=== PATIENT | female | born 1975 | race Caucasian/White ===

== ENCOUNTER → 2016-10-30 | Outpatient (CLI) | payer OTHER ==
[~2016-10-30] MED LIST: ALLEGRA 60MG TA60 MG PO; COZAAR 50MG50 MG/TAB PO; DOXYCYCLINE 10100 MG PO; FLEXERIL 1010 MG/TAB PO; HUMIRA40 MG/0.1 SC; KEPPRA750 MG PO; MEDROL 4MG DOSPA4 MG PO; METHOTREXA2.5 MG/TAB PO; MICROGESTIN 1.51 TAB PO; MOTRIN 800800 MG/TAB PO; NORCO 325 MG-51 TAB PO; PREDNISONE20 MG PO; PROZAC 10MG10 MG PO; PROZAC 20MG4 MG/1 ML; SINGULAIR 110 MG/TAB PO; VIMPAT100 MG PO; VIMPAT200 MG PO; ZESTRIL 10MG10 MG; ZITHROMAX Z PA250 MG PO; ZOFRAN ODT4 MG PO
== END ==
LOC: COL.RAD 10:07
DX: J44.9 Chronic obstructive pulmonary disease, unspecified (principal)

== ENCOUNTER 2016-12-01 21:19 | Emergency (ER) | payer OTHER ==
[~2016-12-01] VITALS: Ht 160 cm; Wt 90.9 kg
[~2016-12-01 21:19] MED LIST changes: -ALLEGRA 60MG TA60 MG PO; -COZAAR 50MG50 MG/TAB PO; -DOXYCYCLINE 10100 MG PO; -PREDNISONE20 MG PO; -SINGULAIR 110 MG/TAB PO
[2016-12-01 21:21] VITALS: BP 159/85
[2016-12-01] MEDS ORDERED: COZAAR 50MG50 MG/TAB PO (21:24)
[2016-12-01] MEDS ORDERED: ALLEGRA 60MG TA60 MG PO (22:06)
[2016-12-01] MEDS ORDERED: SINGULAIR 110 MG/TAB PO (22:06)
[2016-12-01 22:49] VITALS: TEMP 101.2
[2016-12-01 22:54] LABS: INFLUENZA B NEGATIVE
[2016-12-01] MEDS ORDERED: DOXYCYCLINE 10100 MG PO (23:26)
[2016-12-01] MEDS ORDERED: PREDNISONE20 MG PO (23:26)
[2016-12-02 00:19] VITALS: PULSE 109
== END 2016-12-02 00:18 | disposition home or self-care (01) ==
LOC: COL.ER 21:19
PROVIDERS: Emergency Medicine
DX: J20.9 Acute bronchitis, unspecified (principal); Z87.891 Personal history of nicotine dependence; M06.9 Rheumatoid arthritis, unspecified; G40.909 Epilepsy, unspecified, not intractable, without status epilepticus
CPT/HCPCS: J2930; J7030

== ENCOUNTER → 2016-12-20 | Outpatient (CLI) | payer BC ==
[~2016-12-20] MED LIST changes: +ALLEGRA 60MG TA60 MG PO; +COZAAR 50MG50 MG/TAB PO; +DOXYCYCLINE 10100 MG PO; +PREDNISONE20 MG PO; +SINGULAIR 110 MG/TAB PO
== END ==
LOC: COL.PUL 07:50
DX: J45.909 Unspecified asthma, uncomplicated (principal); M54.9 Dorsalgia, unspecified

== ENCOUNTER 2017-01-29 18:59 | Emergency (ER) | payer BC ==
[~2017-01-29] VITALS: Ht 160 cm; Wt 90.9 kg
[2017-01-29 19:10] VITALS: BP 133/73; TEMP 98.3
[2017-01-29] MEDS ORDERED: FLEXERIL 1010 MG/TAB PO (20:12)
[2017-01-29 20:30] VITALS: PULSE 82
== END 2017-01-29 20:30 | disposition home or self-care (01) ==
LOC: COL.ER 18:59
DX: M54.5 Low back pain (principal); M62.830 Muscle spasm of back; M06.851 Other specified rheumatoid arthritis, right hip

== ENCOUNTER → 2017-04-25 | Outpatient (CLI) | payer BC, OTHER | LOC: COL.PUL 08:44 | DX: R06.02 Shortness of breath (principal); Z87.891 Personal history of nicotine dependence | CPT/HCPCS: J7674 ==

== ENCOUNTER → 2017-07-01 | Outpatient (CLI) | payer BC | LOC: COL.RAD 14:32 | DX: M17.12 Unilateral primary osteoarthritis, left knee (principal); M71.22 Synovial cyst of popliteal space [Baker], left knee ==

== ENCOUNTER 2017-08-25 21:44 | Emergency (ER) | payer BC ==
[~2017-08-25] VITALS: Ht 160 cm; Wt 93.6 kg
[2017-08-25 21:47] VITALS: BP 132/95; TEMP 99.3
[2017-08-25 22:27] LABS: INFLUENZA A NEGATIVE; INFLUENZA B NEGATIVE
[2017-08-25] MEDS ORDERED: ORENCIA250 MG IV (23:09)
[2017-08-25] MEDS ORDERED: DULERA1 ARO IH (23:10)
[2017-08-25] MEDS ORDERED: ORENCIA CL125 MG/1 M SQ (23:11)
[2017-08-25 23:34] VITALS: PULSE 96
== END 2017-08-25 23:34 | disposition home or self-care (01) ==
LOC: COL.ER 21:44
PROVIDERS: Nurse Practitioner
DX: J06.9 Acute upper respiratory infection, unspecified (principal); I10 Essential (primary) hypertension; F41.9 Anxiety disorder, unspecified; G40.909 Epilepsy, unspecified, not intractable, without status epilepticus; Z90.49 Acquired absence of other specified parts of digestive tract; Z87.891 Personal history of nicotine dependence

== ENCOUNTER → 2017-11-07 | Outpatient (CLI) | payer BC ==
[~2017-11-07] MED LIST changes: +DULERA1 ARO IH; +ORENCIA CL125 MG/1 M SQ; +ORENCIA250 MG IV
== END ==
LOC: MC.RAD 13:34
DX: Z12.31 Encounter for screening mammogram for malignant neoplasm of breast (principal)

== ENCOUNTER 2018-12-05 09:52 | Day surgery (SDC) | payer BC ==
[~2018-12-05] VITALS: Ht 160 cm; Wt 91.3 kg
[2018-12-05] VITALS (8 sets, daily range): BP systolic 100–127; BP diastolic 58–83; PULSE 69–90; TEMP 97.9–98.3
[2018-12-05] MEDS ORDERED: XELJANZ5 MG PO (10:20)
[2018-12-05] MEDS ORDERED: VIMPAT200 MG PO (10:41)
[2018-12-05] MEDS ORDERED: VIMPAT100 MG PO (10:41)
[2018-12-05] MEDS ORDERED: KEPPRA750 MG PO (10:42)
[2018-12-05] MEDS ORDERED: COZAAR 50MG50 MG/TAB PO (10:43)
[2018-12-05] MEDS ORDERED: JUNEL FE 1/20 21 TAB PO (10:43)
[2018-12-05] MEDS ORDERED: SINGULAIR 110 MG/TAB PO (10:44)
[2018-12-05] MEDS ORDERED: BREO IH (10:45)
[2018-12-05] MEDS ORDERED: PROZAC 10MG10 MG PO (10:45)
[2018-12-05] MEDS ORDERED: FOLIC ACID 11 MG/TA1 PO (10:46)
[2018-12-05] MEDS ORDERED: MULTIPLE VITAMI1 CAP PO (10:46)
[2018-12-05] MEDS ORDERED: VITAMIN D3400 I1 PO (10:47)
[2018-12-05] MEDS ORDERED: OMEGA-3 1000 MG1 CAP PO (10:47)
--- NOTE | 2018-12-05 11:40 | NUR ---
Patient returned to [facility]. Alert and oriented. Vital signs obtained. SpO2 will dip down. When reminded to take deep breaths does return to normal. Patient states she feels sleepy. Friend Mahsa at bedside. Patient given small sip of water. Call jackson within reach, will continue to monitor.
--- NOTE | 2018-12-05 11:55 | NUR ---
Patient SpO2 back up to normal. Alert and oriented. Tolerating water without any difficulty. Will continue to monitor.
--- NOTE | 2018-12-05 12:10 | NUR ---
Resting and talking with friend. Denies pain or nausea.
--- NOTE | 2018-12-05 12:25 | NUR ---
Eating toast. Room air sats 97% and is resting and talking with friend.
--- NOTE | 2018-12-05 12:40 | NUR ---
Resting with eyes closed and allowed to sleep. States that she feels very tired.
--- NOTE | 2018-12-05 12:55 | NUR ---
Resting in recliner with eyes closed.
--- NOTE | 2018-12-05 13:25 | NUR ---
More awake and eating ice cream.
--- NOTE | 2018-12-05 13:45 | NUR ---
Patient awake and dressed self. Given dismissal instructions and voices understanding of these. Dismissed to home per private vehicle driven by friend and taken to the front door per wheelchair by RN and dismissed to home.
== END 2018-12-05 13:45 | disposition home or self-care (01) ==
LOC: SDCO 09:52
DX: K92.1 Melena (principal); K64.1 Second degree hemorrhoids; F32.9 Major depressive disorder, single episode, unspecified; K29.30 Chronic superficial gastritis without bleeding; I10 Essential (primary) hypertension; K58.9 Irritable bowel syndrome, unspecified; E66.9 Obesity, unspecified; Z90.49 Acquired absence of other specified parts of digestive tract; Z68.36 Body mass index [BMI] 36.0-36.9, adult; Z80.0 Family history of malignant neoplasm of digestive organs; Z83.71 Family history of colonic polyps; Z88.0 Allergy status to penicillin; Z88.2 Allergy status to sulfonamides
CPT/HCPCS: J2250; J3010; J7030

== ENCOUNTER 2018-12-25 09:11 | Emergency (ER) | payer BC ==
[~2018-12-25] VITALS: Ht 160 cm; Wt 93.0 kg
[~2018-12-25 09:11] MED LIST changes: +BREO IH; +FOLIC ACID 11 MG/TA1 PO; +JUNEL FE 1/20 21 TAB PO; +MULTIPLE VITAMI1 CAP PO; +OMEGA-3 1000 MG1 CAP PO; +VITAMIN D3400 I1 PO; +XELJANZ5 MG PO
[2018-12-25 09:17] VITALS: TEMP 98.3
[2018-12-25 10:12] LABS: COLLECTION METHOD CLEAN CATCH
[2018-12-25 10:18] LABS: BASO % 0.6 % (0.0-2.0); EOS # 0.2 (0.0-0.7); EOS % 2.5 % (0-4.0); GRAN % 69.7 % (42.2-75.2); HEMATOCRIT 39.5 % (37.0-47.0); HEMOGLOBIN 13.7 g/dl (12.5-16.0); LYMPH # 1.5 (1.2-3.4); LYMPH % 21.4 % (20.0-51.0); MEAN CELL VOLUME 90 fl (80.0-100.0); MEAN CORPUSCULAR HEMOGLOBIN 31 pg (27.0-31.0); MEAN CORPUSCULAR HGB CONC 35 g/dl (33.0-37.0); MEAN PLATELET VOLUME 10.2 fl (7.4-10.4); MONO # 0.4 (0.1-0.6); MONO % 5.5 % (1.7-9.3); PLATELET COUNT 249 K/mm3 (130-400); RED BLOOD COUNT 4.38 M/mm3 (4.10-5.30)
[2018-12-25 10:25] LABS: MUCOUS Present /lpf; PH 5 (5-8); URINE APPEARANCE Clear; URINE BACTERIA None Seen /hpf; URINE BILIRUBIN Negative (NEGATIVE); URINE BLOOD Negative (NEGATIVE); URINE COLOR Yellow; URINE GLUCOSE Negative (NEGATIVE); URINE KETONE Negative (NEGATIVE); URINE LEUKOCYTE ESTERASE Negative (NEGATIVE); URINE NITRATE Negative (NEGATIVE); URINE PROTEIN(semi-quant) Negative (NEGATIVE); URINE RBC 0-2 /hpf; URINE UROBILINOGEN Negative (NEGATIVE)
[2018-12-25 10:31] LABS: ALBUMIN 4.4 gm/dL (3.5-5.0); BILIRUBIN,TOTAL 0.5 mg/dL (0.0-1.0); C-REACTIVE PROTEIN 1.4 mg/dL (0.0-0.9); CALCIUM 9.9 mg/dL (8.4-10.2); CREATININE, serum 0.76 (0.52-1.25); POTASSIUM 4.5 mmol/L (3.4-5.0); TOTAL PROTEIN 8.3 gm/dL (6.4-8.2)
[2018-12-25 11:45] VITALS: BP 133/85; PULSE 84
== END 2018-12-25 11:46 | disposition home or self-care (01) ==
LOC: COL.ER 09:11
PROVIDERS: Nurse Practitioner
DX: R10.32 Left lower quadrant pain (principal); I10 Essential (primary) hypertension; F41.9 Anxiety disorder, unspecified; J45.909 Unspecified asthma, uncomplicated; Z90.49 Acquired absence of other specified parts of digestive tract; Z87.891 Personal history of nicotine dependence
CPT/HCPCS: J1170; J7030; Q9967

== ENCOUNTER → 2019-03-09 | Outpatient (CLI) | payer BC ==
[2019-03-09 10:09] LABS: ALBUMIN 4.3 gm/dL (3.5-5.0); CALCIUM 9.7 mg/dL (8.4-10.2); CREATININE, serum 0.75 (0.52-1.25); MAGNESIUM 1.8 mg/dL (1.6-2.3); PHOSPHOROUS 3.3 mg/dL (2.5-4.5); POTASSIUM 4.2 mmol/L (3.4-5.0)
== END ==
LOC: COL.LAB 08:26
PROVIDERS: Family Medicine
DX: Z84.1 Family history of disorders of kidney and ureter (principal)

== ENCOUNTER 2019-03-20 21:01 | Emergency (ER) | payer BC, OTHER ==
[~2019-03-20] VITALS: Ht 160 cm; Wt 89.5 kg
[2019-03-20 21:08] VITALS: TEMP 98.2
[2019-03-20 22:00] LABS: BASO % 0.5 % (0.0-2.0); EOS # 0.1 (0.0-0.7); GRAN # 6.9 (1.4-6.5); GRAN % 81.6 % (42.2-75.2); HEMOGLOBIN 11.7 g/dl (12.5-16.0); LYMPH % 11.9 % (20.0-51.0); MEAN CELL VOLUME 87 fl (80.0-100.0); MEAN CORPUSCULAR HEMOGLOBIN 31 pg (27.0-31.0); MEAN CORPUSCULAR HGB CONC 35 g/dl (33.0-37.0); MEAN PLATELET VOLUME 9.9 fl (7.4-10.4); MONO # 0.4 (0.1-0.6); MONO % 4.6 % (1.7-9.3); PLATELET COUNT 215 K/mm3 (130-400); RED BLOOD COUNT 3.83 M/mm3 (4.10-5.30); REDCELL DISTRIBUTION WIDTH-CV 11.9 % (11.5-14.5)
[2019-03-20 22:07] LABS: HEMATOCRIT 33.4 % (37.0-47.0)
[2019-03-20 22:17] LABS: ALBUMIN 3.6 gm/dL (3.5-5.0); BILIRUBIN,TOTAL 0.2 mg/dL (0.0-1.0); C-REACTIVE PROTEIN 1.6 mg/dL (0.0-0.9); CALCIUM 8.5 mg/dL (8.4-10.2); CREATININE, serum 0.69 (0.52-1.25); POTASSIUM 3.9 mmol/L (3.4-5.0); TOTAL PROTEIN 6.5 gm/dL (6.4-8.2)
[2019-03-20 22:50] VITALS: BP 128/84; PULSE 64
== END 2019-03-20 22:50 | disposition home or self-care (01) ==
LOC: COL.ER 21:01
PROVIDERS: Family Medicine
DX: G40.909 Epilepsy, unspecified, not intractable, without status epilepticus (principal); Z79.51 Long term (current) use of inhaled steroids
CPT/HCPCS: J1953; J7030

== ENCOUNTER → 2019-04-16 | Outpatient (CLI) | payer BC | LOC: MC.RAD 08:00 | DX: Z12.31 Encounter for screening mammogram for malignant neoplasm of breast (principal) ==

== ENCOUNTER → 2019-07-15 | Outpatient (CLI) | payer BC | LOC: MC.RAD 13:55 | DX: R92.2 Inconclusive mammogram (principal) ==

== ENCOUNTER → 2019-09-16 | Outpatient (CLI) | payer BC | LOC: COL.RAD 14:33 | DX: M53.3 Sacrococcygeal disorders, not elsewhere classified (principal); G43.909 Migraine, unspecified, not intractable, without status migrainosus ==

== ENCOUNTER → 2019-11-28 | Outpatient (CLI) | payer BC | LOC: COL.LAB 12:05 | DX: Z11.59 Encounter for screening for other viral diseases (principal) ==

== ENCOUNTER 2019-12-06 13:28 | Emergency (ER) | payer BC ==
[~2019-12-06] VITALS: Ht 160 cm; Wt 93.2 kg
[2019-12-06 13:31] VITALS: BP 178/87; TEMP 97.8
[2019-12-06] MEDS ORDERED: KEPPRA750 MG PO (13:57)
[2019-12-06 14:10] VITALS: PULSE 90
== END 2019-12-06 14:10 | disposition home or self-care (01) ==
LOC: COL.ER 13:28
DX: Z76.0 Encounter for issue of repeat prescription (principal); F41.9 Anxiety disorder, unspecified; M06.9 Rheumatoid arthritis, unspecified; G40.909 Epilepsy, unspecified, not intractable, without status epilepticus; Z87.891 Personal history of nicotine dependence; Z79.51 Long term (current) use of inhaled steroids

== ENCOUNTER 2020-01-31 19:49 | Emergency (ER) | payer BC ==
[~2020-01-31] VITALS: Ht 160 cm; Wt 92.7 kg
[2020-01-31 19:55] VITALS: TEMP 97.5
[2020-01-31] MEDS ORDERED: PREDNISONE20 MG PO (20:44)
[2020-01-31 21:00] VITALS: BP 166/89; PULSE 87
== END 2020-01-31 21:00 | disposition home or self-care (01) ==
LOC: COL.ER 19:49
DX: M79.642 Pain in left hand (principal); M06.9 Rheumatoid arthritis, unspecified; J45.909 Unspecified asthma, uncomplicated; G40.909 Epilepsy, unspecified, not intractable, without status epilepticus; Z90.49 Acquired absence of other specified parts of digestive tract; Z79.51 Long term (current) use of inhaled steroids; Z87.891 Personal history of nicotine dependence; W10.9XXA Fall (on) (from) unspecified stairs and steps, initial encounter
CPT/HCPCS: J7512

== ENCOUNTER → 2020-03-07 | Outpatient (CLI) | payer BC ==
[2020-03-07 07:30] LABS: HEMATOCRIT 38.1 % (37.0-47.0); HEMOGLOBIN 13.4 g/dl (12.5-16.0); MEAN CELL VOLUME 88 fl (80.0-100.0); MEAN CORPUSCULAR HEMOGLOBIN 31 pg (27.0-31.0); MEAN CORPUSCULAR HGB CONC 35 g/dl (33.0-37.0); MEAN PLATELET VOLUME 9.7 fl (7.4-10.4); PLATELET COUNT 253 K/mm3 (130-400); RED BLOOD COUNT 4.31 M/mm3 (4.10-5.30); REDCELL DISTRIBUTION WIDTH-CV 11.8 % (11.5-14.5)
[2020-03-07 07:40] LABS: ALBUMIN 4.2 gm/dL (3.5-5.0); BILIRUBIN,TOTAL 0.4 mg/dL (0.0-1.0); CALCIUM 8.8 mg/dL (8.4-10.2); CHOLESTEROL RISK RATIO 4.6; CREATININE, serum 0.77 (0.52-1.25); TOTAL PROTEIN 7.4 gm/dL (6.4-8.2)
[2020-03-07 08:09] LABS: THYROID STIMULATING HORMONE 4.95 uIU/mL (0.465-4.680)
== END ==
LOC: COL.LAB 07:05
PROVIDERS: Family Medicine
DX: Z13.0 Encounter for screening for diseases of the blood and blood-forming organs and certain disorders involving the immune mechanism (principal); Z13.1 Encounter for screening for diabetes mellitus; Z13.220 Encounter for screening for lipoid disorders

== ENCOUNTER 2020-06-13 15:02 | Outpatient (RCR) | payer OTHER ==
[2020-06-20] MEDS ORDERED: ZITHROMAX 250M250 MG PO (10:36)
[2020-06-20] MEDS ORDERED: TRAVEL SICKNESS25 MG PO (12:37)
== END 2020-08-08 | disposition home or self-care (01) ==
LOC: WSOH
DX: M75.42 Impingement syndrome of left shoulder (principal); G43.909 Migraine, unspecified, not intractable, without status migrainosus; J45.909 Unspecified asthma, uncomplicated; F41.9 Anxiety disorder, unspecified; E28.2 Polycystic ovarian syndrome; G40.909 Epilepsy, unspecified, not intractable, without status epilepticus; M06.9 Rheumatoid arthritis, unspecified; Z87.891 Personal history of nicotine dependence; Y99.0 Civilian activity done for income or pay

== ENCOUNTER 2020-06-20 10:20 | Emergency (ER) | payer BC ==
[~2020-06-20] VITALS: Ht 160 cm; Wt 93.2 kg
[2020-06-20 10:33] VITALS: TEMP 98.1
[2020-06-20] MEDS ORDERED: ZITHROMAX 250M250 MG PO (10:36)
[2020-06-20 11:53] LABS: BASO # 0.1 (0.0-0.2); BASO % 0.7 % (0.0-2.0); EOS # 0.2 (0.0-0.7); EOS % 2.1 % (0-4.0); GRAN % 73.7 % (42.2-75.2); HEMATOCRIT 38.5 % (37.0-47.0); HEMOGLOBIN 13.2 g/dl (12.5-16.0); LYMPH # 1.5 (1.2-3.4); LYMPH % 18.1 % (20.0-51.0); MEAN CELL VOLUME 90 fl (80.0-100.0); MEAN CORPUSCULAR HEMOGLOBIN 31 pg (27.0-31.0); MEAN CORPUSCULAR HGB CONC 34 g/dl (33.0-37.0); MONO # 0.4 (0.1-0.6); MONO % 4.9 % (1.7-9.3); PLATELET COUNT 300 K/mm3 (130-400); RED BLOOD COUNT 4.29 M/mm3 (4.10-5.30); REDCELL DISTRIBUTION WIDTH-CV 12.3 % (11.5-14.5)
[2020-06-20 11:58] LABS: ALBUMIN 4.7 gm/dL (3.5-5.0); BILIRUBIN,TOTAL 0.4 mg/dL (0.0-1.0); C-REACTIVE PROTEIN 1.5 mg/dL (0.0-0.9); CALCIUM 9.8 mg/dL (8.4-10.2); CREATININE, serum 0.93 (0.52-1.25); POTASSIUM 4.3 mmol/L (3.4-5.0)
[2020-06-20] MEDS ORDERED: TRAVEL SICKNESS25 MG PO (12:37)
[2020-06-20 12:44] VITALS: BP 146/86; PULSE 89
== END 2020-06-20 12:43 | disposition home or self-care (01) ==
LOC: COL.ER 10:20
PROVIDERS: Physician Assistant
DX: R42 Dizziness and giddiness (principal); H53.9 Unspecified visual disturbance; R20.2 Paresthesia of skin; J45.909 Unspecified asthma, uncomplicated; G40.909 Epilepsy, unspecified, not intractable, without status epilepticus; M06.9 Rheumatoid arthritis, unspecified; Z90.49 Acquired absence of other specified parts of digestive tract; Z32.02 Encounter for pregnancy test, result negative; Z87.891 Personal history of nicotine dependence; Z88.1 Allergy status to other antibiotic agents; Z88.5 Allergy status to narcotic agent; Z79.899 Other long term (current) drug therapy
CPT/HCPCS: J3360; J7030

== ENCOUNTER → 2020-10-10 | Outpatient (CLI) | payer BC ==
[~2020-10-10] MED LIST changes: +ACTEMRA AC162 MG/0.9 SQ; +HYZAAR 25 MG-101 TAB PO; -MULTIPLE VITAMI1 CAP PO; +MULTIPLE VITAMI1 TA5 PO; +PROZAC 20MG20 MG PO; +TOPROL XL 25MG25 MG PO; +TRAVEL SICKNESS25 MG PO; +ZITHROMAX 250M250 MG PO
[2020-10-10 14:33] LABS: HEMOGLOBIN 12.8 g/dl (12.5-16.0); MEAN CELL VOLUME 87 fl (80.0-100.0); MEAN CORPUSCULAR HEMOGLOBIN 30 pg (27.0-31.0); MEAN CORPUSCULAR HGB CONC 35 g/dl (33.0-37.0); MEAN PLATELET VOLUME 9.7 fl (7.4-10.4); PLATELET COUNT 269 K/mm3 (130-400); RED BLOOD COUNT 4.24 M/mm3 (4.10-5.30); REDCELL DISTRIBUTION WIDTH-CV 12.6 % (11.5-14.5)
[2020-10-10 14:42] LABS: ALANINE AMINOTRANSFERASE 17 U/L (4-34); AST,SGOT 26 U/L (15-37)
== END ==
LOC: COL.LAB
PROVIDERS: Internal Medicine Rheumatology
DX: Z79.899 Other long term (current) drug therapy (principal)

== ENCOUNTER → 2020-10-19 | Outpatient (CLI) | payer BC ==
[2020-10-19 15:48] LABS: BASO % 0.4 % (0.0-2.0); EOS # 0.2 (0.0-0.7); EOS % 3.1 % (0-4.0); GRAN # 5.1 (1.4-6.5); GRAN % 75.2 % (42.2-75.2); HEMATOCRIT 39.9 % (37.0-47.0); HEMOGLOBIN 13.6 g/dl (12.5-16.0); LYMPH # 0.9 (1.2-3.4); LYMPH % 13.7 % (20.0-51.0); MEAN CELL VOLUME 87 fl (80.0-100.0); MEAN CORPUSCULAR HEMOGLOBIN 30 pg (27.0-31.0); MEAN CORPUSCULAR HGB CONC 34 g/dl (33.0-37.0); MEAN PLATELET VOLUME 9.6 fl (7.4-10.4); MONO # 0.5 (0.1-0.6); MONO % 7.2 % (1.7-9.3); PLATELET COUNT 249 K/mm3 (130-400); REDCELL DISTRIBUTION WIDTH-CV 12.4 % (11.5-14.5)
[2020-10-19 16:00] LABS: CALCIUM 9.1 mg/dL (8.4-10.2); CREATININE, serum 0.72 (0.52-1.25); POTASSIUM 4.2 mmol/L (3.4-5.0)
== END ==
LOC: COL.LAB 14:56
PROVIDERS: Physician Assistant Medical
DX: J02.9 Acute pharyngitis, unspecified (principal); I10 Essential (primary) hypertension

== ENCOUNTER → 2020-12-08 | Outpatient (CLI) | payer BC ==
[2020-12-08 23:05] LABS: ESTRADIOL <10 pg/mL (()); FOLLICLE STIMULATING HORMONE 2.7 mIU/mL (()); T3 FREE (TRI-IODOTHYRONINE) 3.3 pg/mL (1.7-3.7)
== END ==
LOC: COL.LAB 16:27
PROVIDERS: Family Medicine
DX: N95.1 Menopausal and female climacteric states (principal)

== ENCOUNTER → 2021-02-08 | Outpatient (REF) | LOC: COL.LAB 08:22 | DX: Z20.822 Contact with and (suspected) exposure to COVID-19 (principal) ==

== ENCOUNTER 2021-02-20 07:56 | Emergency (ER) | payer BC ==
[~2021-02-20] VITALS: Ht 160 cm; Wt 92.7 kg
[~2021-02-20 07:56] MED LIST changes: -ACTEMRA AC162 MG/0.9 SQ; -HYZAAR 25 MG-101 TAB PO; -TOPROL XL 25MG25 MG PO
[2021-02-20 08:19] VITALS: TEMP 98.7
[2021-02-20] MEDS ORDERED: HYZAAR 25 MG-101 TAB PO (08:25)
[2021-02-20] MEDS ORDERED: TOPROL XL 25MG25 MG PO (08:26)
[2021-02-20] MEDS ORDERED: ACTEMRA AC162 MG/0.9 SQ (08:27)
[2021-02-20 09:00] LABS: BASO # 0.1 (0.0-0.2); BASO % 0.6 % (0.0-2.0); EOS # 0.6 (0.0-0.7); EOS % 5.9 % (0-4.0); GRAN # 7.2 (1.4-6.5); GRAN % 66.2 % (42.2-75.2); HEMOGLOBIN 12.6 g/dl (12.5-16.0); LYMPH # 2.3 (1.2-3.4); LYMPH % 21.3 % (20.0-51.0); MEAN CELL VOLUME 90 fl (80.0-100.0); MEAN CORPUSCULAR HEMOGLOBIN 32 pg (27.0-31.0); MEAN CORPUSCULAR HGB CONC 36 g/dl (33.0-37.0); MEAN PLATELET VOLUME 9.8 fl (7.4-10.4); MONO # 0.6 (0.1-0.6); MONO % 5.3 % (1.7-9.3); PLATELET COUNT 206 K/mm3 (130-400); RED BLOOD COUNT 3.92 M/mm3 (4.10-5.30); REDCELL DISTRIBUTION WIDTH-CV 12.7 % (11.5-14.5)
[2021-02-20 09:01] LABS: HEMATOCRIT 35.4 % (37.0-47.0)
[2021-02-20 09:12] LABS: ALANINE AMINOTRANSFERASE 24 U/L (4-34); ALBUMIN 3.6 gm/dL (3.5-5.0); ALKALINE PHOSPHATASE 57 U/L (50-136); ANION GAP 3 mmol/L (7-16); AST,SGOT 25 U/L (15-37); BILIRUBIN,TOTAL 0.3 mg/dL (0.0-1.0); BLOOD UREA NITROGEN 12 mg/dL (7-17); CALCIUM 8.6 mg/dL (8.4-10.2); CARBON DIOXIDE 24 mmol/L (22-30); CHLORIDE 111 mmol/L (98-107); CREATININE, serum 0.59 (0.52-1.25); GLUCOSE 115 mg/dL (74-106); SODIUM 139 mmol/L (137-145); TOTAL PROTEIN 6.7 gm/dL (6.4-8.2)
[2021-02-20 09:31] LABS: TROPONIN-I < 0.012 ng/mL (0.000-0.035)
[2021-02-20] MEDS ORDERED: PREDNISONE20 MG PO (14:40)
[2021-02-20 15:00] VITALS: BP 155/52; PULSE 83
== END 2021-02-20 15:05 | disposition home or self-care (01) ==
LOC: COL.ER 07:56
PROVIDERS: Personal Emergency Response Attendant
DX: J06.9 Acute upper respiratory infection, unspecified (principal); G40.909 Epilepsy, unspecified, not intractable, without status epilepticus; J45.909 Unspecified asthma, uncomplicated; R79.1 Abnormal coagulation profile; Z79.899 Other long term (current) drug therapy; Z20.822 Contact with and (suspected) exposure to COVID-19
CPT/HCPCS: Q9967

== ENCOUNTER 2021-07-07 17:00 | Emergency (ER) | payer BC ==
[~2021-07-07] VITALS: Ht 160 cm; Wt 90.0 kg
[~2021-07-07 17:00] MED LIST changes: +ACTEMRA AC162 MG/0.9 SQ; +HYZAAR 25 MG-101 TAB PO; +TOPROL XL 25MG25 MG PO
[2021-07-07 17:11] VITALS: TEMP 99.4
[2021-07-07 18:23] LABS: BASO % 0.6 % (0.0-2.0); EOS # 0.3 K/mm3 (0.0-0.7); EOS % 3.9 % (0-4.0); GRAN # 4.6 K/mm3 (1.4-6.5); GRAN % 68.8 % (42.2-75.2); HEMATOCRIT 38.6 % (37.0-47.0); HEMOGLOBIN 13.6 g/dl (12.5-16.0); LYMPH # 1.3 K/mm3 (1.2-3.4); LYMPH % 19.6 % (20.0-51.0); MEAN CELL VOLUME 87 fl (80.0-100.0); MEAN CORPUSCULAR HEMOGLOBIN 31 pg (27.0-31.0); MEAN CORPUSCULAR HGB CONC 35 g/dl (33.0-37.0); MEAN PLATELET VOLUME 9.9 fl (7.4-10.4); MONO # 0.4 K/mm3 (0.1-0.6); MONO % 6.5 % (1.7-9.3); PLATELET COUNT 242 K/mm3 (130-400); RED BLOOD COUNT 4.45 M/mm3 (4.10-5.30); REDCELL DISTRIBUTION WIDTH-CV 11.6 % (11.5-14.5)
[2021-07-07 18:40] LABS: ALBUMIN 3.8 gm/dL (3.5-5.0); BILIRUBIN,TOTAL 0.4 mg/dL (0.2-1.2); CALCIUM 9.3 mg/dL (8.4-10.2); CREATININE, serum 0.77 mg/dL (0.57-1.11); POTASSIUM 3.4 mmol/L (3.5-4.5); TOTAL PROTEIN 7.5 gm/dL (6.2-8.1)
[2021-07-07 19:25] LABS: COLLECTION METHOD CLEAN CATCH
[2021-07-07 19:37] LABS: MUCOUS Present (NOT PRESENT); PH 6 (5-8); URINE APPEARANCE Clear (CLEAR/HAZY); URINE BACTERIA None Seen (NONE SEEN); URINE BILIRUBIN Negative (NEGATIVE); URINE BLOOD Negative (NEGATIVE); URINE COLOR Yellow (YELLOW); URINE GLUCOSE Negative (NEGATIVE); URINE KETONE Negative (NEGATIVE); URINE LEUKOCYTE ESTERASE Negative (NEGATIVE); URINE NITRATE Negative (NEGATIVE); URINE PROTEIN(semi-quant) Negative (NEGATIVE); URINE RBC 0-2 /hpf (0-2); URINE UROBILINOGEN Negative (NEGATIVE)
[2021-07-07] MEDS ORDERED: BENTYL 10MG10 MG/CAP PO (21:43)
[2021-07-07 22:15] VITALS: BP 118/61; PULSE 80
== END 2021-07-07 22:20 | disposition home or self-care (01) ==
LOC: COL.ER 17:00
PROVIDERS: Physician Assistant
DX: R10.32 Left lower quadrant pain (principal); G40.909 Epilepsy, unspecified, not intractable, without status epilepticus; I10 Essential (primary) hypertension; F32.A Depression, unspecified; Z90.49 Acquired absence of other specified parts of digestive tract; Z87.19 Personal history of other diseases of the digestive system; Z79.899 Other long term (current) drug therapy
CPT/HCPCS: J0500; J1885; J2405; J7030; Q9967

== ENCOUNTER 2021-07-18 08:04 | Emergency (ER) | payer BC ==
[~2021-07-18] VITALS: Ht 160 cm; Wt 90.0 kg
[~2021-07-18 08:04] MED LIST changes: +BENTYL 10MG10 MG/CAP PO
[2021-07-18 08:15] VITALS: TEMP 98
[2021-07-18 08:50] LABS: COLLECTION METHOD CLEAN CATCH
[2021-07-18 08:53] LABS: BASO # 0.1 K/mm3 (0.0-0.2); BASO % 0.6 % (0.0-2.0); EOS # 0.3 K/mm3 (0.0-0.7); GRAN # 7.6 K/mm3 (1.4-6.5); GRAN % 74.3 % (42.2-75.2); HEMATOCRIT 39.9 % (37.0-47.0); HEMOGLOBIN 13.9 g/dl (12.5-16.0); LYMPH # 1.6 K/mm3 (1.2-3.4); LYMPH % 15.8 % (20.0-51.0); MEAN CELL VOLUME 87 fl (80.0-100.0); MEAN CORPUSCULAR HEMOGLOBIN 30 pg (27.0-31.0); MEAN CORPUSCULAR HGB CONC 35 g/dl (33.0-37.0); MEAN PLATELET VOLUME 9.6 fl (7.4-10.4); MONO # 0.6 K/mm3 (0.1-0.6); MONO % 5.8 % (1.7-9.3); PLATELET COUNT 319 K/mm3 (130-400); RED BLOOD COUNT 4.57 M/mm3 (4.10-5.30)
[2021-07-18 09:07] LABS: MUCOUS Present (NOT PRESENT); PH 5 (5-8); SQUAMOUS EPITHELIAL 0-2 /hpf (0-10); URINE APPEARANCE Hazy (CLEAR/HAZY); URINE BACTERIA None Seen (NONE SEEN); URINE BILIRUBIN Negative (NEGATIVE); URINE BLOOD 3+ (NEGATIVE); URINE COLOR Yellow (YELLOW); URINE GLUCOSE Negative (NEGATIVE); URINE KETONE Negative (NEGATIVE); URINE LEUKOCYTE ESTERASE Negative (NEGATIVE); URINE NITRATE Negative (NEGATIVE); URINE PROTEIN(semi-quant) Negative (NEGATIVE); URINE RBC >50 /hpf (0-2); URINE UROBILINOGEN Negative (NEGATIVE)
[2021-07-18 09:11] LABS: BILIRUBIN,TOTAL 0.7 mg/dL (0.2-1.2); CALCIUM 8.9 mg/dL (8.4-10.2); CREATININE, serum 0.86 mg/dL (0.57-1.11); POTASSIUM 3.7 mmol/L (3.5-4.5); TOTAL PROTEIN 7.5 gm/dL (6.2-8.1)
[2021-07-18] MEDS ORDERED: ZOFRAN ODT4 MG PO (09:56)
[2021-07-18 10:19] VITALS: BP 108/64; PULSE 71
[2021-07-19 13:43] LABS: CLOSTRIDIUM DIFF A/B NEG; CLOSTRIDIUM DIFF A/B INTERP NonToxigenic C.diff
[2021-07-20] MEDS ORDERED: VANCOCIN H125 MG/CAP PO (13:08)
== END 2021-07-18 10:21 | disposition home or self-care (01) ==
LOC: COL.ER 08:04
PROVIDERS: Emergency Medicine
DX: R19.7 Diarrhea, unspecified (principal); I10 Essential (primary) hypertension; G40.909 Epilepsy, unspecified, not intractable, without status epilepticus; F32.A Depression, unspecified; Z20.822 Contact with and (suspected) exposure to COVID-19; Z79.899 Other long term (current) drug therapy
CPT/HCPCS: J2405; J7030

== ENCOUNTER 2021-10-25 08:25 | Emergency (ER) | payer SELFPAY ==
[~2021-10-25] VITALS: Ht 160 cm; Wt 88.2 kg
[~2021-10-25 08:25] MED LIST changes: +VANCOCIN H125 MG/CAP PO
[2021-10-25 08:28] VITALS: BP 104/73; TEMP 98.2
[2021-10-25] MEDS ORDERED: PREDNISONE10 MG PO (09:07)
[2021-10-25 09:15] VITALS: PULSE 81
== END 2021-10-25 09:15 | disposition home or self-care (01) ==
LOC: COL.ER 08:25
DX: R05.9 Cough, unspecified (principal)
CPT/HCPCS: J7512

== ENCOUNTER 2021-12-06 20:42 | Emergency (ER) | payer BC ==
[~2021-12-06] VITALS: Ht 160 cm; Wt 94.1 kg
[~2021-12-06 20:42] MED LIST changes: +PREDNISONE10 MG PO
[2021-12-06 20:46] VITALS: TEMP 98.6
[2021-12-06 21:31] LABS: STREP SCREEN NEGATIVE
[2021-12-06] MEDS ORDERED: MAGIC MOUTH PO (22:17)
[2021-12-06 22:22] VITALS: BP 135/72; PULSE 72
== END 2021-12-06 22:22 | disposition home or self-care (01) ==
LOC: COL.ER 20:42
PROVIDERS: Nurse Practitioner Primary Care
DX: H69.92 Unspecified Eustachian tube disorder, left ear (principal); Z88.6 Allergy status to analgesic agent

== ENCOUNTER → 2022-03-27 | Outpatient (CLI) | payer BC ==
[~2022-03-27] MED LIST changes: +MAGIC MOUTH PO
[2022-03-27 11:20] LABS: BASO % 0.4 % (0.0-2.0); EOS % 0.2 % (0.0-4.0); GRAN # 8.9 K/mm3 (1.4-6.5); GRAN % 80.7 % (42.2-75.2); HEMOGLOBIN 11.7 g/dl (12.5-16.0); LYMPH # 1.7 K/mm3 (1.2-3.4); LYMPH % 15.3 % (20.0-51.0); MEAN CELL VOLUME 83 fl (80.0-100.0); MEAN CORPUSCULAR HEMOGLOBIN 26 pg (27-31); MEAN CORPUSCULAR HGB CONC 32 g/dl (33.0-37.0); MEAN PLATELET VOLUME 9.7 fl (7.4-10.4); MONO # 0.3 K/mm3 (0.1-0.6); MONO % 2.9 % (1.7-9.3); PLATELET COUNT 334 K/mm3 (130-400); RED BLOOD COUNT 4.44 M/mm3 (4.10-5.30); REDCELL DISTRIBUTION WIDTH-CV 13.2 % (11.5-14.5)
[2022-03-27 11:37] LABS: C-REACTIVE PROTEIN 0.71 mg/dL (0.00-0.50); URIC ACID 6.5 mg/dL (2.6-6.0)
[2022-03-27 11:43] LABS: ERYTHROCYTE SEDIMENTATION RATE 22 mm/hr (0-20)
[2022-03-27 11:55] LABS: HEMATOCRIT 36.8 % (37.0-47.0)
== END ==
LOC: COL.LAB 10:44
PROVIDERS: Family Medicine
DX: M25.532 Pain in left wrist (principal)

== ENCOUNTER → 2024-04-01 | Outpatient (CLI) | payer MEDICAID ==
[~2024-04-01] MED LIST changes: +ULTRAM 50MG TAB50 MG PO
== END ==
LOC: COL.RAD 14:38
DX: M47.816 Spondylosis without myelopathy or radiculopathy, lumbar region (principal); M47.817 Spondylosis without myelopathy or radiculopathy, lumbosacral region; M25.551 Pain in right hip; M05.79 Rheumatoid arthritis with rheumatoid factor of multiple sites without organ or systems involvement; G89.11 Acute pain due to trauma